=== PATIENT | female | born 2000 | race Caucasian/White ===

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

== ENCOUNTER 2021-05-23 22:31 | Emergency (ER) | payer OTHER ==
[~2021-05-23] VITALS: Ht 154.9 cm; Wt 45.1 kg
[2021-05-23 23:03] VITALS: BP 105/69
--- NOTE | 2021-05-23 23:09 | NUR ---
PT SENT TO LOBBY.
--- NOTE | 2021-05-23 23:58 | NUR ---
AMBULATED TO BED #11
--- NOTE | 2021-05-24 00:17 | NUR ---
ER AT BEDSIDE
[2021-05-24] MEDS ORDERED: PRED20TA5 PO (00:25)
--- NOTE | 2021-05-24 00:32 | NUR ---
PATIENT CLEARED FOR DISCHARGE AT THIS TIME. ADVISED TO FOLLOW UP WITH PCP AND RETURN IF CONDITION WORSENS. NO OTHER COMPLAINT OR CONCERNS FOLLOWING DISHCARGE TEACHING.
[2021-05-24 00:33] VITALS: BP 110/61
== END 2021-05-24 00:32 | disposition home or self-care (01) ==
LOC: MED 22:31
DX: S60.561A Insect bite (nonvenomous) of right hand, initial encounter (principal); Z79.899 Other long term (current) drug therapy
CPT/HCPCS: 99283